=== PATIENT | female | born 1965 | race Caucasian/White ===

== ENCOUNTER 2018-11-16 09:24 | Emergency (ER) | END 2018-11-16 11:54 | disposition home or self-care (01) ==

== ENCOUNTER 2018-11-18 09:58 | Emergency (ER) | END 2018-11-18 12:26 | disposition home or self-care (01) ==

== ENCOUNTER 2018-11-19 06:04 | Emergency (ER) | END 2018-11-19 06:48 | disposition home or self-care (01) ==

== ENCOUNTER 2018-11-26 12:45 | Emergency (ER) | payer OTHER ==
[~2018-11-26] VITALS: Wt 66.6 kg
[~2018-11-26 12:45] MED LIST: ACET325T33 PO; CEPH-443 PO; SULF1TAB31 PO
[2018-11-26 12:52] VITALS: BP 157/83; PULSE 63; RESP 18
--- NOTE | 2018-12-07 03:58 | ERD ---
ER Documentation Chief Complaint Chief Complaint sutures to R wrist placed 11/16: here for re-check. looks clean/dry HPI 53-year-old female presents for wound follow-up. Patient had sutures placed in the right wrist 11/16 and was put on Keflex shortly afterwards due to signs of action. Patient denies any current pain, fevers, chills, discharge, dehiscence of wound. ROS All systems reviewed and are negative except as per history of present illness. Medications Home Meds Active Scripts Sulfamethoxazole/Trimethoprim* (Bactrim Ds* Tablet) 1 Each Tablet, 1 TAB PO BID, #14 TAB Prov:ANAYA LUIS PA-C 11/18/18 Acetaminophen* (Tylenol*) 325 Mg Tablet, 2 TAB PO Q4 PRN for PAIN AND OR ELEVATED TEMP, #30 TAB Prov:MAC EMMANUEL PA-C 11/16/18 Cephalexin* (Keflex*) 500 Mg Capsule, 500 MG PO QID for 10 Days, CAP Prov:MAC EMMANUEL PA-C 11/16/18 Allergies Allergies: Coded Allergies: No Known Allergy (Unverified , 11/18/18) PMhx/Soc Medical and Surgical Hx: pt denies Medical Hx, pt denies Surgical Hx Hx Alcohol Use: No Hx Substance Use: No Hx Tobacco Use: No Physical Exam Physical Exam Const: No acute distress Resp: Clear to auscultation bilaterally Cardio: Regular rate and rhythm, no murmurs Abd: Soft, non tender, non distended. Normal bowel sounds Skin: Sutures noted over underlying laceration to right wrist. Sutures are intact with no signs of dehiscence, discharge, erythema, or infection. Wound edges are approximated well but the edges have not fused fully together Psych: Normal Mood and Affect Procedures/MDM MDM: 53-year-old female presents for wound follow-up. Patient had sutures placed in the right wrist 11/16 and was put on Keflex shortly afterwards due to signs of action. Patient denies any current pain, fevers, chills, discharge, dehiscence of wound. I have low suspicion for infection. Because the wound edges have not fully fused together decision was made to keep sutures intact for several more days to allow for more full healing. Patient advised to return in 4 days for suture removal and to continue course of antibiotics.. Patient discharged with strict ER precautions. Patient advised to follow up with PMD. All questions answered at discharge. Departure Diagnosis: Primary Impression: Encounter for wound re-check Condition: Stable Patient Instructions: Wound Check, Lac F/U (No Infection) Referrals: [facility] YOU HAVE RECEIVED A MEDICAL SCREENING EXAM AND THE RESULTS INDICATE THAT YOU DO NOT HAVE A CONDITION THAT REQUIRES URGENT TREATMENT IN THE EMERGENCY DEPARTMENT. FURTHER EVALUATION AND TREATMENT OF YOUR CONDITION CAN WAIT UNTIL YOU ARE SEEN IN YOUR DOCTORS OFFICE WITHIN THE NEXT 1-2 DAYS. IT IS YOUR RESPONSIBILITY TO MAKE AN APPOINTMENT FOR FOLOW-UP CARE. IF YOU HAVE A PRIMARY DOCTOR --you should call your primary doctor and schedule an appointment IF YOU DO NOT HAVE A PRIMARY DOCTOR YOU CAN CALL OUR PHYSICIAN REFERRAL HOTLINE AT IF YOU CAN NOT AFFORD TO SEE A PHYSICIAN YOU CAN CHOSE FROM THE FOLLOWING [facility] [address] [facility] [address] [facility] [address] [facility] [address] [facility] [address] [facility]. [facility] [address] [facility] [facility] [address] Additional Instructions: Return to this facility in 5 DAYS for a follow-up exam.Return sooner if your condition worsens. HARDEEP COX Dec 07, 2018 03:58
== END 2018-11-26 15:05 | disposition home or self-care (01) ==
LOC: FTE 12:45
DX: Z48.01 Encounter for change or removal of surgical wound dressing (principal)
CPT/HCPCS: 99281

== ENCOUNTER 2019-01-03 15:54 | Emergency (ER) | payer OTHER ==
[~2019-01-03] VITALS: Ht 167.6 cm; Wt 66.8 kg
[2019-01-03 16:09] VITALS: BP 156/83; PULSE 68; RESP 18; Ht 167.6 cm; Wt 66.8 kg
--- NOTE | 2019-01-03 16:33 | ERD ---
ER Documentation Chief Complaint Chief Complaint Wound check R wrist Lac, movement difficulties HPI 53-year-old female, right-handed, presents to the emergency department, complaining of decreased range of motion of the fourth and fifth digits of the right hand after a laceration that occurred 6 weeks ago and was repaired here in the emergency department. The patient states that she is unable to extend the fingers, she denies distal numbness. ROS All systems reviewed and are negative except as per history of present illness. Medications Home Meds Active Scripts Sulfamethoxazole/Trimethoprim* (Bactrim Ds* Tablet) 1 Each Tablet, 1 TAB PO BID, #14 TAB Prov:ANAYA LUIS PA-C 11/18/18 Acetaminophen* (Tylenol*) 325 Mg Tablet, 2 TAB PO Q4 PRN for PAIN AND OR ELEVATED TEMP, #30 TAB Prov:MAC EMMANUEL PA-C 11/16/18 Cephalexin* (Keflex*) 500 Mg Capsule, 500 MG PO QID for 10 Days, CAP Prov:MAC EMMANUEL PA-C 11/16/18 Allergies Allergies: Coded Allergies: No Known Allergy (Unverified , 11/18/18) PMhx/Soc Hx Alcohol Use: No Hx Substance Use: No Hx Tobacco Use: No FmHx Family History: No diabetes, No coronary disease Physical Exam Vitals Vital Signs Date Temp Pulse Resp B/P (MAP) Pulse Ox O2 O2 Flow FiO2 Time Delivery Rate 01/03/19 98.1 68 18 156/83 97 16:09 (107) Physical Exam Const: No acute distress Head: Atraumatic Eyes: Normal Conjunctiva ENT: Normal External Ears, Nose and Mouth. Neck: Full range of motion. No meningismus. Resp: Clear to auscultation bilaterally Cardio: Regular rate and rhythm, no murmurs Abd: Soft, non tender, non distended. Normal bowel sounds Skin: No petechiae or rashes Back: No midline or flank tenderness Ext: Right wrist: 7 cm healing laceration, without evidence of infection. Fourth and fifth right digits flexed, when the fingers are extended a tendon retraction at the level of the laceration is noticed. The patient is unable to keep an extended position of the fingers. Neur: Awake and alert Psych: Normal Mood and Affect Results 24 hrs DIAGNOSTIC IMAGING REPORT Patient: VERO MATT : 1965 Age: 53 Sex: F MR #: [id number] DOS: 01/03/19 1631 Ordering MD: KADY CHERY MD Location: [facility] Room/Bed: PROCEDURE: CT of the right upper extremity CLINICAL INDICATION: Right wrist pain, injury, concern for tendon retraction TECHNIQUE: Axial images through the right wrist without IV contrast. Coronal and sagittal reformats. Images were interpreted at an independent PACS workstation. CTDI 8.6 a mGy DLP 23 1.23 mGy-cm DICOM Images are available One or more of the following dose reduction techniques were used: Automated exposure control Adjustment of the mA and / or kV according to patient size Use of iterative reconstruction technique. COMPARISON: None available FINDINGS: Unfortunate the study is somewhat limited due to artifact and difficulties with patient positioning and limited signal to noise ratio. The fingers are held in flexion. There is no CT evidence of acute fracture. Alignment appears normal. Joint spaces are grossly unremarkable. There is slight soft tissue irregularity along the palmar aspect of the wrist. The tendons themselves are not well assessed on CT. There is no soft tissue gas. There is no definite fluid collection. IMPRESSION: 1. Very limited study due to technical factors as above. 2. No definite acute osseous abnormality . 3. An MRI is recommended for better soft tissue evaluation. Findings discussed with Kady Chery at 01/03/2019 5:44:37 PM RPTAT: UU .Juventino Carlson MD, MD Date Time Electronically viewed and signed by .Juventino Carlson MD, on 01/03/2019 17:45 .K/ CC: KADY CHERY MD Procedures/MDM Vital signs stable, the patient was evaluated for foreign body, fracture, infection, scar tissue, nerve/vascular/tendon injury. Clinical presentation and physical examination consistent most likely with flexor tendon injury of the right fourth and fifth digits. Results discussed with the patient and her boss, they agreed to follow-up with orthopedic surgeon, in the meantime a ulnar gutter splint will be placed to prevent further contractures. If symptoms persist, worsen or new symptoms develop, then patient should return to the ED immediately. Instructions explained and given directly by me to the patient in Pashto with acknowledgment and demonstrated understanding. Disclaimer: Inadvertent spelling and grammatical errors are likely due to EHR/dictation software use and do not reflect on the overall quality of patient care. Also, please note that the electronic time recorded on this note does not necessarily reflect the actual time of the patient encounter. Departure Diagnosis: Primary Impression: Laceration of right wrist with complication Additional Impression: Deficit of flexor tendon Condition: Stable Additional Instructions: Muchas dustin por [facility] para ybarra servicio. Esperamos que en ybarra visita a la anthony de emergencia ybarra problema medico haya sido solucionado y que se sienta mucho mejor. Para estar seguros que ybarra mejoria sigue en proceso, le pedimos el favor de hacer lisa misha de seguimiento medico con ybarra doctor primario en los proximos 2-4 mccord. Lleve con usted estos documentos y las medicinas recetadas. Si brandee sintomas empeoran, NO SE ESPERE, por favor regrese a anthony de emergencia INMEDIATAMENTE. En kristy que usted no tenga un mdico de atencin primaria: Llame al mdico o clnica comunitaria de referencia que aparece abajo johnathan las horas de consultorio para hacer lisa misha para que le vean. CLINICAS: [facility] [phone] [facility] [phone] [facility] [phone] [facility] [phone] [address] [place] [phone] [facility]. [phone] KADY ROLAND MD Jan 03, 2019 16:30
== END 2019-01-03 18:21 | disposition home or self-care (01) ==
LOC: FTE 15:54
DX: S61.52 Laceration with foreign body of wrist (principal); M67.80 Other specified disorders of synovium and tendon, unspecified site; X58.XXXD Exposure to other specified factors, subsequent encounter
CPT/HCPCS: 73200